=== PATIENT | male | born 1950 | race Caucasian/White ===

== ENCOUNTER 2018-07-25 01:28 | Emergency (ER) | payer OTHER ==
[~2018-07-25] VITALS: Ht 167.6 cm; Wt 86.6 kg
[~2018-07-25 01:28] MED LIST: METFORMIN HCL500 M3 PO
[2018-07-25 01:36] VITALS: Ht 167.6 cm; Wt 86.6 kg
[2018-07-25 03:29] VITALS: BP 153/91
== END 2018-07-25 03:29 | disposition home or self-care (01) ==
LOC: ED 01:28
DX: S16.1XXA Strain of muscle, fascia and tendon at neck level, initial encounter (principal); S46.912A Strain of unspecified muscle, fascia and tendon at shoulder and upper arm level, left arm, initial encounter; J45.909 Unspecified asthma, uncomplicated; E11.9 Type 2 diabetes mellitus without complications; Z88.0 Allergy status to penicillin; X58.XXXA Exposure to other specified factors, initial encounter; Y93.84 Activity, sleeping; Y92.89 Other specified places as the place of occurrence of the external cause; Y99.8 Other external cause status
CPT/HCPCS: 82962; J1885